=== PATIENT | female | born 1980 | race Caucasian/White ===

== ENCOUNTER 2023-01-08 13:41 | Emergency (ER) | payer MEDICARE, SELFPAY ==
[2023-01-08 13:58] VITALS: BP 133/92; PULSE 85; RESP 18; TEMP 36.9; O2SAT 98; BMI 38.4
--- NOTE | 2023-01-08 14:12 | CRLHL7_ITS ---
For Patients: As a result of the Century Cures Act, medical imaging exams and procedure reports are released immediately into your electronic medical record. You may view this report before your referring provider. If you have questions, please contact your health care provider. INDICATION: Pain TECHNIQUE: Three views of the left foot FINDINGS: Normal alignment. No fractures or acute osseous abnormalities. Calcaneal spur. Dictated by Dayanna Suarez MD @ 01/08/2023 2:55:35 PM (Electronically Signed)
--- NOTE | 2023-01-08 14:22 | ED_ITS ---
HPI - General Adult General Time Seen by Provider: 14:23 Date Seen: 01/08/23 Chief complaint: Extremity Pain/Injury, Lower Stated complaint: left foot swollen, toes are burning Time Seen by Provider: 01/08/23 13:42 Source: patient Mode of arrival: ambulatory Limitations: no limitations History of Present Illness HPI narrative: Patient is a 42-year-old female with no pertinent medical problems presenting to emergency department for left foot pain. She states she knows today she is having pain at the base of the left toenail shows no swelling that area also. There is some mild erythema she notes but no warmth. Has never had symptoms like this before. She has minimal walk on it as very painful. She is a nonsmoker, only occasionally drinks alcohol, only occasionally needs me. Denies fevers, chills, weakness. Has no some numbness to the toes her left foot. Denies any trauma Related Data Home Medications Medication Instructions Recorded Confirmed addreall 30 mg PO DAILY 01/08/23 01/08/23 Allergies Allergy/AdvReac Type Severity Reaction Status Date / Time No Known Drug Allergies Allergy Verified 01/08/23 14:04 Review of Systems Status of ROS: Reports: 6 or more systems reviewed and unremarkable except as noted in History and below PFSH PFSH Social History Smoking Status: Never smoker Do you use any of these nicotine containing products: None How often do you have a drink containing alcohol: never How often do you have six or more drinks on one occasion: Never AUDIT-C Alcohol total score: 0 Non-prescribed substance use: denies use Exam Narrative: Exam Narrative: Const: Well-nourished, Well-developed, in mild distress Eyes: PERRL, no conjunctival injection, and symmetrical lids ENMT: Atraumatic external nose and ears. Moist mucous membranes. MSK:Extremities w/o deformity, pain to palpation to base of her left toe. Mild swelling and erythema noted to the base of the left toe. Skin: Warm, Dry. No rashes or lesions. Neuro: Normal Muscle tone, No focal neurological deficits. Psych: Awake, Alert, & Oriented x3. Appropriate mood and affect. Const: Vital Signs, click to edit/add: Vital Signs - 24 hr 01/08/23 13:58 Temperature 98.4 F Pulse Rate [Right Pulse Oximeter] 85 Respiratory Rate 18 Blood Pressure [Ri ght Upper Arm] 133/92 H Pulse Oximetry 98 Oxygen Delivery Me thod Room Air Course Vital Signs Vital signs: Initial Vital Signs Temperature 98.4 F 01/08/23 13:58 Temperature Source Temporal Artery Scan 01/08/23 13:58 Pulse Rate 85 01/08/23 13:58 Respiratory Rate 18 01/08/23 13:58 Blood Pressure 133/92 H 01/08/23 13:58 Blood Pressure Mean 105 01/08/23 13:58 Blood Pressure Position Sitting 01/08/23 13:58 Pulse Oximetry 98 01/08/23 13:58 Oxygen Delivery Method Room Air 01/08/23 13:58 Vital Signs Temperature 98.4 F 01/08/23 13:58 Pulse Rate 85 01/08/23 13:58 Respiratory Rate 18 01/08/23 13:58 Blood Pressure 133/92 H 01/08/23 13:58 Pulse Oximetry 98 01/08/23 13:58 Oxygen Delivery Method Room Air 01/08/23 13:58 Temperature 98.4 F 01/08/23 13:58 Pulse Rate 85 01/08/23 13:58 Respiratory Rate 18 01/08/23 13:58 Blood Pressure 133/92 H 01/08/23 13:58 Pulse Oximetry 98 01/08/23 13:58 Oxygen Delivery Method Room Air 01/08/23 13:58 Medical Decision Making MDM Narrative Medical decision making narrative: Patient is a 42-year-old female with no pertinent medical problems presenting to emergency department for left foot pain. The pain is at the base of her left toe. There is some mild swelling and erythema. No clear signs of cellulitis. She is no risk factors for gout. Gout is unlikely at this point. Does not appear to be septic joint. Luminal swollen up to leave arthrocentesis will benefit specialties since the pain appears more to be throughout basal left toe and going medial into the 2nd toe. After speaking longer she does states she got a new pair work routine she got 1 size smaller because the old ones she said were too big. This was about a month ago. She does not think they are too tight. We did do an x-ray of the foot showed no concerning abnormalities. Patient was given Toradol and morphine for pain. This improved her symptoms. She is otherwise doing well at this time. She will be discharged home interval follow-up with primary care provider. She agrees with this plan Differential Diagnosis Differential Diagnosis: Fracture, muscle strain, gout, septic joint. Discharge Plan Discharge Clinical Impression: Great toe pain Qualifiers: Laterality: left Qualified Code(s): M79.675 - Pain in left toe(s) Patient Disposition: Home, Self-Care Condition: Improved Instructions: Metatarsalgia (DC) Additional Instructions: Take Tylenol and ibuprofen for pain. Return for new or worsening symptoms follo w-up with the primary care provider Prescriptions: No Action addreall 30 mg PO DAILY Patient Comments: when goes to work Follow Up/Referrals: Provider,Not a Local [Primary Care Provider] - Stand Alone Forms: [employer] Info Instructions
[2023-01-08] MEDS: MORPHINE 4 MG/ML INJ IM (14:40)
[2023-01-08] MEDS: KETOROLAC 30 MG/ML inj IM (14:41)
--- NOTE | 2023-01-08 15:40 | ED.NURSE ---
patient is on cell phone and has a smile on face. rates pain at 3/10 scale.
== END 2023-01-08 15:49 | disposition home or self-care (01) ==
PROVIDERS: Emergency Provider Student in an Organized Health Care Education/Training Program
DX: M79.675 Pain in left toe(s) (principal)
CPT/HCPCS: 73630; 96372; 99282; 99283; J1885; J2270